=== PATIENT | female | born 1950 | race Two or more races ===

== ENCOUNTER 2017-08-27 09:13 | Outpatient (CLI) | payer OTHER ==
[~2017-08-27 09:13] MED LIST: ATACAND16 MG PO; CITALOPRAM10 MG/5 ML; LIPITOR20 MG PO; LIPITOR40 MG; SINGULAIR10 MG; ZITHROMAX TRI-500 MG PO; ZOLOFT25 MG PO
== END 2017-08-27 09:26 | disposition home or self-care (01) ==
LOC: NUCLEAR 09:13
DX: I87.2 Venous insufficiency (chronic) (peripheral) (principal)

== ENCOUNTER 2018-06-30 18:05 | Emergency (ER) | payer OTHER ==
[~2018-06-30] VITALS: Ht 165.1 cm; Wt 66.2 kg
== END 2018-06-30 20:38 | disposition home or self-care (01) ==
LOC: ER 18:05
DX: S60.212A Contusion of left wrist, initial encounter (principal); S80.02XA Contusion of left knee, initial encounter; S80.01XA Contusion of right knee, initial encounter; S00.33XA Contusion of nose, initial encounter; S00.83XA Contusion of other part of head, initial encounter; W18.39XA Other fall on same level, initial encounter; Y93.89 Activity, other specified; Y92.038 Other place in apartment as the place of occurrence of the external cause; Y99.8 Other external cause status